=== PATIENT | male | born 1990 | race Caucasian/White ===

== ENCOUNTER 2016-12-06 07:50 | Emergency (ER) | payer SELFPAY ==
[2016-12-06 08:06] VITALS: BP 130/96
--- NOTE | 2016-12-06 08:29 | UC ---
Headache HPI - HPI Summary HPI Summary: 26 y/o Palestinian speaking male presents to the urgent care accompany by his Employer c/o recurrent headaches for the past 2 months. Pt states today's MATUTE is 2/10 , dull, diffuse throughout his head and episodic. At times his MATUTE is throbbing, 7/10, at the end of along day of work and he feels like a "hot flash in his head". He has been taking OTC medication, but he can't recall the name. Sometimes this medication doesn't relief his MATUTE. Pt denies Dizziness, visual disturbances, eye pain, N/V/D, SOB, chest pain, abdominal pain, neck pain or urinary symptoms. - History Of Current Complaint Stated Complaint: RECURRING HEADACHES Time Seen by Provider: 12/06/16 08:00 Hx Obtained From: Patient Onset/Duration: Gradual Onset, Lasting Hours, Still Present Initially Headache Was: Initial Pain Scale(0-10)= - 8, Moderate Currently Pain Is: Current Pain Scale(0-10)=, Mild Pain Intensity: 2 Pain Scale Used: 0-10 Numeric Timing: Intermittent, Lasting: - 3-4hrs Character: Throbbing - all over the head and he feels like his head is hot Location of Headache: Diffuse Aggravating Factor(s): Exertion Allevating Factor(s): Medication - OTC for headache Associated Signs And Symptoms: Positive: Dizziness. Negative: Nausea, Vomiting , Fever, Neck Pain, Neck Stiffness, Visual Changes - Risk Factors SAH Risk Factors: Negative Meningitis Risk Factors: Negative SDH Risk Factors: Negative Temporal Arteritis Risk Factors: Negative - Allergies/Home Medications Allergies/Adverse Reactions: Allergies Allergy/AdvReac Type Severity Reaction Status Date / Time No Known Allergies Allergy Verified 12/06/16 08:06 Home Medications: Home Medications Otc Pain Reliever 12/06/16 [History] PMH/Surg Hx/FS Hx/Imm Hx Previously Healthy: Yes - Pt denies PMHX - Surgical History Surgical History: None - Family History Known Family History: Positive: Hypertension - Social History Occupation: Employed Full-time Lives: Alone Alcohol Use: None Substance Use Type: None Smoking Status (MU): Never Smoked Tobacco - Immunization History Most Recent Influenza Vaccination: Not the 2016/2017 Season Review of Systems Constitutional: Negative Skin: Negative Eyes: Negative ENT: Negative Respiratory: Negative Cardiovascular: Negative Gastrointestinal: Negative Genitourinary: Negative Motor: Negative Neurovascular: Negative Musculoskeletal: Negative Neurological: Headache Is Patient Immunocompromised?: No All Other Systems Reviewed And Are Negative: Yes Physical Exam Triage Information Reviewed: Yes Appearance: Well-Appearing, No Pain Distress, Well-Nourished, Obese Vital Signs: Initial Vital Signs Temp 98.7 F 12/06/16 07:59 Pulse 68 12/06/16 07:59 Resp 16 12/06/16 07:59 BP 130/96 12/06/16 07:59 Pulse Ox 100 12/06/16 07:59 Vital Signs Reviewed: Yes Eye Exam: Normal Eyes: Positive: Conjunctiva Clear - -Eyes: sclera and conjunctiva clear, corneas grossly clear, PEERLA, EOMI, no nystagmus, no ptosis,no photophobia, normal fundoscopic exam, normal visual vera,, Other: - -Head:scalp atraumatic , NT, no trigger points ENT Exam: Normal ENT: Positive: Normal ENT inspection, Hearing grossly normal, Pharynx normal, TMs normal - B/L external ear canals clear, Other: - No TMJ tenderness. Negative: Nasal congestion, Nasal drainage, Tonsillar swelling, Tonsillar exudate Dental Exam: Normal Neck exam: Normal Neck: Positive: Supple, Nontender, No Lymphadenopathy Respiratory Exam: Normal Respiratory: Positive: Chest non-tender, Lungs clear, Normal breath sounds, No respiratory distress Cardiovascular Exam: Normal Cardiovascular: Positive: RRR, No Murmur, Pulses Normal, Brisk Capillary Refill Abdominal Exam: Normal Abdomen Description: Positive: Nontender, No Organomegaly, Soft. Negative: CVA Tenderness (R), CVA Tenderness (L) Bowel Sounds: Positive: Present Musculoskeletal Exam: Normal Musculoskeletal: Positive: Strength Intact, ROM Intact, No Edema Neurological Exam: Normal Neurological: Positive: Alert - A&OX3, CNII-XII WNL, speech, memory and expression WNL,, Muscle Tone Normal - Muscle strength 5/5 in both upper and lower extremities. Normal gait, negative Romberg test and good cordination finger to nose, heel to dowell WNL, sensation intact. Reflexes WNL Psychological Exam: Normal Skin Exam: Normal Skin: Positive: Other - no petechia observed Headache Course/Dx - Course Course Of Treatment: 26 y/o Palestinian speaking male presents to the urgent care accompany by his Employer c/o recurrent headaches for the past 2 months. Pt states today's MATUTE is 2/10 , dull, diffuse throughout his head and episodic. At times his MATUTE is throbbing, 7/10, at the end of along day of work and he feels like a "hot flash in his head". He has been taking OTC medication, but he can't recall the name. Sometimes this medication doesn't relief his MATUTE. Pt denies Dizziness, visual disturbances, eye pain, N/V/D, SOB, chest pain, abdominal pain , neck pain or urinary symptoms. Hx obtained. PE is WNL, Today's BP is elevated and Pt has FMHX of HTN. Rx Naproxen PO to alleviate MATUTE. However strongly advised to f/u with a PCP for full blood work up and to monitor his BP at home, decrease salt in his diet which he states he ests very salty food. Record reading and if it continues to be elevated and MATUTE continue despite medication to f/u with PCp for further treatment. Also advised if he develops Severe MATUTE with N/V/ dizziness or visual disturbances to go immediately to the ER. All D/C instructions given to the Pt in Palestinian and Employer in [place]. Both understood and agreed with plan of care. Pt left the clinic ambulating, A& OX3. - Differential Dx/Diagnosis Differential Diagnosis/HQI/PQRI: Migraine, Sinus Headache, Subarachnoid Hemorrhage, Tension Headache, Other - HTN Provider Diagnoses: 1- Headache. 2-Elevated BP w/o Hx of HTN Discharge - Discharge Plan Condition: Stable Disposition: HOME Prescriptions: Naproxen TAB* [Naprosyn 250 mg TAB*] 500 mg PO Q8H PRN #60 tab PRN Reason: Headache Patient Education Materials: General Headache (ED), Low Sodium Diet (ED), DASH Eating Plan (ED) Print Language: INDONESIAN Referrals: [facility] [Outside] Additional Instructions: 1- Por favor tome el Naproxen 500mg PO q8hrs cuando tenga el dolor de sonia y tomelo despues de las comidas. Pare de sanjana el otro medicamento q estaba tomando antes. 2-Morfin pression arterial se encuentra elevada hoy. Por favor monitore la pression en casa o en lillian farmacia y si continua elevada por favor km lillian jeana con un doctor primario para q le km nuevos analices. 3- Si morfin dolor de sonia no se mejora con el el medicamento por favor regrese a la clinica or con un Dr primario
== END 2016-12-06 08:35 | disposition home or self-care (01) ==
LOC: UCCORT 07:50
DX: R51 Headache (principal); R03.0 Elevated blood-pressure reading, without diagnosis of hypertension
CPT/HCPCS: 99202; G0463